=== PATIENT | female | born 1980 | race Caucasian/White ===

== ENCOUNTER 2022-06-15 07:59 | Day surgery (SDC) | payer MEDICARE ==
[2022-06-15] VITALS (7 sets, daily range): BP systolic 104–126; BP diastolic 63–76; PULSE 56–80; TEMP 97.3–98
[~2022-06-15] VITALS: Ht 165.1 cm; Wt 91.4 kg
[~2022-06-15 07:59] MED LIST: ATARAX 25MG25 MG/TAB PO; PLAQUENIL 200M200 MG PO; TYLENOL 325MG325 MG PO
[2022-06-15] MEDS ORDERED: NORCO 325 MG-51 TAB PO (11:31)
--- NOTE | 2022-06-15 14:00 | NUR ---
1230 RETURNS TO ROOM 5 PER CART. DROWSY, AROUSES TO VERBAL STIMULI. RESP CLEAR, SPONTANEOUS. HOB ELEVATED 40 DEGREES. VITAL SIGNS OBTAINED. O2 AT 2L/NC. ABD SOFT. BANDAID X 3 SITES CLEAN DRY. DENIES NAUSEA. REPORTS COMFORT AT THIS TIME. CALL LIGHT AT SIDE 1245 DOZING 1300 TOLERATES WATER AND JUICE WITHOUT NAUSEA. 1315 SIGNIFICANT OTHER HERE. PATIENT AWAKE, ALERT. O2 OFF 1330 DISCHARGE INSTRUCTIONS REVIEWED. PATIENT VERBALIZES UNDERSTANDING. COPY PROVIDED IN DISCHARGE FOLDER 1350 SITS ON EDGE OF CART DRESSES WITH ASSISTANCE OF SIGNIFICANT OTHER. 1352 AMBULATES TO BATHROOM WITH STANDBY ASSIST. REPORTS VOIDS WITHOUT DIFFICULTY.
== END 2022-06-15 14:00 | disposition home or self-care (01) ==
LOC: SDCO 07:59
DX: K80.10 Calculus of gallbladder with chronic cholecystitis without obstruction (principal); K66.0 Peritoneal adhesions (postprocedural) (postinfection); K85.10 Biliary acute pancreatitis without necrosis or infection; M32.8 Other forms of systemic lupus erythematosus
CPT/HCPCS: J0690; J1100; J1170; J1885; J2405; J2704; J3010; J7120; Q9967